=== PATIENT | female | born 1965 | race African-American/Black ===

== ENCOUNTER 2018-07-11 14:39 | Emergency (ER) | payer BC ==
[~2018-07-11] VITALS: Ht 180.3 cm; Wt 72.6 kg
--- NOTE | 2018-07-11 14:52 | NUR ---
ED Nurse Note: ambulated in to ER due to HTN and NICHOLSON since this morning. Pt reports that her BP was 185/96 and no known history and no meds that shes's taking at home regularly. Denies N/V but pt states that she had bloody stool today. A/Ox4, calm and able to give full sentence without any labor breathing.
[2018-07-11] MEDS ORDERED: NKM (14:54)
[2018-07-11 14:55] VITALS: BP 172/86
--- NOTE | 2018-07-11 15:00 | NUR ---
ED Nurse Note: pt refused CT and ERMD at the bedside. Per ERMD, she will cancel the CT.
--- NOTE | 2018-07-11 15:30 | NUR ---
ED Nurse Note: All blood specimens and urine collected and sent down to the lab.
[2018-07-11 15:44] LABS: APPEARANCE,URINE CLEAR; BILIRUBIN, URINE NEGATIVE (NEGATIVE); COLOR,URINE PALE YELLOW; GLUCOSE, URINE (UA) NEGATIVE (NEGATIVE); KETONES,URINE NEGATIVE (NEGATIVE); LEUKOCYTE ESTERASE ,URINE NEGATIVE (NEGATIVE); NITRITE,URINE NEGATIVE (NEGATIVE); PH,URINE 5 (4.5-8.0); PROTEIN,URINE NEGATIVE (NEGATIVE); UROBILINOGEN,URINE NORMAL MG/DL (0.0-1.0)
[2018-07-11 15:49] LABS: INR 1.1 (0.9-1.1)
--- NOTE | 2018-07-11 15:51 | Emergency Room Report ---
History of Present Illness General Chief Complaint: Gastrointestinal Bleed Source: Patient Present Illness HPI This patient complains of high blood pressure. The patient states that she felt a weird sensation in her neck all morning. She states that she then excused herself unremarkable went over to her friend's house. She states while she was there her friend took her blood pressure and it was elevated. She states that the systolic blood pressure was 185. She denies any history of high blood pressure and in the past. She states she eats healthy other than she does eat some salt. She also exercises regularly. 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 She admits that she did take 2 tablets of Tylenol PM because she is having difficulty falling asleep last night. She denies recent illness. She denies fever or chills. She denies cough or congestion. She denies chest pain or shortness of breath. She also states she noted some bright red blood in her stool today. She denies diarrhea. She denies rectal pain. She denies lightheadedness. She states she has had this occasionally in the past. She has no other complaints. Allergies: Coded Allergies: No Known Allergies (Unverified , 07/11/18) Patient History Past Medical History: none, see triage record Social History: Denies: smoking, alcohol use, drug use Reviewed Nursing Documentation: PMH: Agreed; PSxH: Agreed Nursing Documentation-PMH Past Medical History: No Stated History Review of Systems All Other Systems: negative except mentioned in HPI Physical Exam Vital Signs Date Time Temp Pulse Resp B/P (MAP) Pulse Ox O2 Delivery O2 Flow Rate FiO2 07/11/18 14:49 97.9 53 19 159/90 98 Room Air Sp02 EP Interpretation: reviewed, normal General Appearance: no apparent distress, alert, GCS 15, non-toxic Head: normocephalic, atraumatic Eyes: bilateral eye normal inspection, bilateral eye PERRL ENT: hearing grossly normal, normal pharynx, no angioedema, normal voice Neck: full range of motion, supple/symm/no masses Respiratory: chest non-tender, lungs clear, normal breath sounds, no respiratory distress, no retraction, no accessory muscle use, speaking full sentences Cardiovascular #1: regular rate, rhythm, no edema Gastrointestinal: normal bowel sounds, non tender, soft, non-distended, no guarding, no rebound Rectal: deferred - Patient declined Musculoskeletal: back normal, gait/station normal, normal range of motion, non- tender Neurologic: alert, oriented x3, responsive, motor strength/tone normal, sensory intact, speech normal Psychiatric: judgement/insight normal, memory normal, mood/affect normal, no suicidal/homicidal ideation Skin: normal color, no rash, warm/dry, well hydrated Medical Decision Making Diagnostic Impression: Primary Impression: Hypertension ER Course This patient is hypertensive. The patient's blood pressure was primarily in the 160s systolic while she was here. Overall, her evaluation is benign. She declined a CT of her head that she did not want to be exposed to radiation. I had a low suspicion for CVA, so I did cancel the CT head. Laboratory workup to include CBC, CMP and urinalysis were unremarkable. EKG was also unremarkable other than sinus bradycardia. The patient declined a rectal exam. I suspect the patient likely has hemorrhoids. Her history is reassuring. Also reassuring is her normal hemoglobin and hematocrit. I will start the patient on lisinopril. I educated the patient that she should keep a blood pressure log and follow up closely with her primary care physician. I also educated her on diet, exercise and stress reduction. She was given close return precautions and follow-up instructions. Laboratory Tests Test 07/11/18 15:10 07/11/18 15:15 White Blood Count 4.2 K/UL (4.8-10.8) L Red Blood Count 4.27 M/UL (4.20-5.40) Hemoglobin 12.1 G/DL (12.0-16.0) Hematocrit 36.2 % (37.0-47.0) L Mean Corpuscular Volume 85 FL (80-99) Mean Corpuscular Hemoglobin 28.5 PG (27.0-31.0) Mean Corpuscular Hemoglobin Concent 33.5 G/DL (32.0-36.0) Red Cell Distribution Width 12.8 % (11.6-14.8) Platelet Count 196 K/UL (150-450) Mean Platelet Volume 6.9 FL (6.5-10.1) Neutrophils (%) (Auto) 48.3 % (45.0-75.0) Lymphocytes (%) (Auto) 35.9 % (20.0-45.0) Monocytes (%) (Auto) 10.8 % (1.0-10.0) H Eosinophils (%) (Auto) 3.0 % (0.0-3.0) Basophils (%) (Auto) 1.9 % (0.0-2.0) Prothrombin Time 11.2 SEC (9.30-11.50) Prothrombin Time INR 1.1 (0.9-1.1) PTT 30 SEC (23-33) Sodium Level 141 MMOL/L (136-145) Potassium Level 3.8 MMOL/L (3.5-5.1) Chloride Level 105 MMOL/L (98-107) Carbon Dioxide Level 27 MMOL/L (21-32) Anion Gap 9 mmol/L (5-15) Blood Urea Nitrogen 10 mg/dL (7-18) Creatinine 0.9 MG/DL (0.55-1.30) Estimate Glomerular Filtration Rate > 60 mL/min (>60) Glucose Level 84 MG/DL (74-106) Calcium Level 9.4 MG/DL (8.5-10.1) Total Bilirubin Pending Aspartate Amino Transferase (AST) Pending Alanine Aminotransferase (ALT) Pending Alkaline Phosphatase Pending Total Creatine Kinase Pending Creatine Kinase MB Pending Troponin I Pending Total Protein Pending Albumin Pending Globulin Pending Urine Color Pale yellow Urine Appearance Clear Urine pH 5 (4.5-8.0) Urine Specific Cove 1.005 (1.005-1.035) Urine Protein Negative (NEGATIVE) Urine Glucose (UA) Negative (NEGATIVE) Urine Ketones Negative (NEGATIVE) Urine Blood Negative (NEGATIVE) Urine Nitrite Negative (NEGATIVE) Urine Bilirubin Negative (NEGATIVE) Urine Urobilinogen Normal MG/DL (0.0-1.0) Urine Leukocyte Esterase Negative (NEGATIVE) Urine Opiates Screen Negative (NEGATIVE) Urine Barbiturates Screen Negative (NEGATIVE) Phencyclidine (PCP) Screen Negative (NEGATIVE) Urine Amphetamines Screen Negative (NEGATIVE) Urine Benzodiazepines Screen Negative (NEGATIVE) Urine Cocaine Screen Negative (NEGATIVE) Urine Marijuana (THC) Screen Negative (NEGATIVE) EKG Diagnostic Results Rate: bradycardiac Rhythm: other - S.bradycardia ST Segments: no acute changes Rhythm Strip Diag. Results EP Interpretation: yes Rate: 40's Rhythm: no PVC's, no ectopy, other - S.jai benito Last Vital Signs Date Time Temp Pulse Resp B/P (MAP) Pulse Ox O2 Delivery O2 Flow Rate FiO2 07/11/18 14:55 52 16 Room Air 07/11/18 14:55 97.9 172/86 100 Status: improved Disposition: HOME, SELF-CARE Condition: Improved Referrals: NON PHYSICIAN (PCP) Julee Quan DO Jul 11, 2018 15:50
[2018-07-11 15:53] LABS: ANION GAP 9 mmol/L (5-15); BLOOD UREA NITROGEN 10 mg/dL (7-18); CALCIUM 9.4 MG/DL (8.5-10.1); CARBON DIOXIDE 27 MMOL/L (21-32); CHLORIDE 105 MMOL/L (98-107); CREATININE 0.9 MG/DL (0.55-1.30); POTASSIUM 3.8 MMOL/L (3.5-5.1); SODIUM 141 MMOL/L (136-145)
[2018-07-11 15:56] LABS: BASOPHILS % (AUTO) 1.9 % (0.0-2.0); HEMATOCRIT 36.2 % (37.0-47.0); HEMOGLOBIN 12.1 G/DL (12.0-16.0); LYMPHOCYTES % (AUTO) 35.9 % (20.0-45.0); MEAN CORPUSCULAR VOLUME 85 FL (80-99); MONOCYTES % (AUTO) 10.8 % (1.0-10.0); NEUTROPHILS % (AUTO) 48.3 % (45.0-75.0); PLATELET COUNT 196 K/UL (150-450); RED BLOOD COUNT 4.27 M/UL (4.20-5.40); RED CELL DISTRIBUTION WIDTH 12.8 % (11.6-14.8); WHITE BLOOD COUNT 4.2 K/UL (4.8-10.8)
[2018-07-11 16:07] LABS: ALANINE AMINOTRANSFERASE 32 U/L (12-78); ALBUMIN/GLOBULIN RATIO 1.3 (1.0-2.7); ALKALINE PHOSPHATASE 103 U/L (46-116); ASPARTATE AMINO TRANSFERASE 23 U/L (15-37); BILIRUBIN,TOTAL 0.3 MG/DL (0.2-1.0); CKMB 2.7 NG/ML (0.0-3.6); CREATINE KINASE 171 U/L (26-308)
[2018-07-11] MEDS ORDERED: Lisinopril 10mg tab ORAL ONE (17:00)
[2018-07-11 18:18] VITALS: BP 154/83
--- NOTE | 2018-07-11 18:45 | NUR ---
ED Nurse Note: PT REQUESTED TO TAKE OUT IV AND CARDIAC MONTIOR. PER ERMD, PT WILL BE DISCHARGE SOON SO IT'S OK TO TAKE OUT THE IV AND NO NEED FOR CLINICAL PHARMACIST AT THIS TIME. IV REMOVED.
[2018-07-11] MEDS ORDERED: LISINOPRIL10 MG ORAL (18:48)
[2018-07-11 18:52] VITALS: BP 154/83
--- NOTE | 2018-07-11 18:53 | NUR ---
ED Nurse Note: Pt cleared by health care Provider for discharge. DC instructions/prescription was given and explained to pt and verbalized understanding of teachings. All medical deviecs such as ID band and IV removed. Pt is AAO x4, ambulatory with steady gait and left with all personal belongings. Pt denies any pain at this time.
--- NOTE | 2018-07-12 18:27 | Cardiology Report ---
APPROVED REPORT EKG Measurement Heart [id number] OR [id number] Sinus bradycardia Nonspecific T wave abnormality Abnormal ECG
== END 2018-07-11 18:54 | disposition home or self-care (01) ==
LOC: EMR 15:30
DX: I10 Essential (primary) hypertension (principal); K92.1 Melena; R00.1 Bradycardia, unspecified
CPT/HCPCS: 36415; 80053; 80307; 81003; 82550; 82553; 84484; 85025; 85610; 85730; 93005; 96374; 99284; J0360